=== PATIENT | female | born 1995 | race African-American/Black ===

== ENCOUNTER 2017-04-28 15:43 | Outpatient (CLI) | payer BC ==
--- NOTE | 2017-04-28 16:59 | ULT ---
LEFT SOFT TISSUE ULTRASOUND THE BACK: History: Localized swelling and mass in the left lower back. Patient reports that this mass has gotte n bigger over the last three years and occasionally causes her discomfort. Technique: Multiplanar grayscale and color doppler images were obtained in a targeted ultrasound of t he left lower back. FINDINGS: There is a well circumscribed lesion which demonstrates a similar echogenicity of the subcutaneous fa t. This is intimately associated with the lower aspect of the latissimus dorsi muscle and may be just beneath the superficial fascial layering of the latissimus dorsi muscle. This measures 3.8 x 0.9 x 4 .0 cm in size and most likely represents a lipoma. No focal fluid collection is seen. IMPRESSION: Soft tissue mass in the left lower back likely represents a lipoma. On physical exam, this is mobile. This may or may not be associated with the lower aspect of the latissimus dorsi muscle. POS: [facility]
== END 2017-04-28 15:44 | disposition home or self-care (01) ==
LOC: ULT 15:43
PROVIDERS: ATTEND Nurse Practitioner Family
DX: R22.2 Localized swelling, mass and lump, trunk (principal)
CPT/HCPCS: 76999